=== PATIENT | male | born 1955 | race American Indian/Alaskan Native ===

== ENCOUNTER 2018-01-05 20:49 | Emergency (ER) | payer SELFPAY ==
[2018-01-05 22:59] VITALS: BP 168/103
[2018-01-06 00:05] LABS: Hematocrit 38.1 % (35.5-45.6); Hemoglobin 12.6 gm/dl (11.8-15.2); Mean Corpuscular HGB Conc 33 % (32-34); Mean Corpuscular Hemoglobin 31 pg (28-32); Mean Corpuscular Volume 93 fl (84-94); Platelet Count 260 K/mm3 (140-440); Red Cell Distribution Width 14.7 % (13.2-15.2)
--- NOTE | 2018-01-06 00:11 | Ultrasound Report ---
FINAL REPORT EXAM: US TESTICULAR DOPPLER COMP HISTORY: testicular pain TECHNIQUE: Routine sonographic evaluation was obtained of the scrotum with Doppler interrogation of both testicles. FINDINGS: The right testicle is normal size contour and echotexture measuring 2.8 cm x 2.6 cm x 3.2 cm. The right epididymis appears normal. There is a very small right-sided hydrocele. The left testicle is enlarged revealing slightly diminished echotexture, measuring 4.5 cm x 3.8 cm x 4.3 cm. There is slightly increased blood flow to the left testicle. There is a small septated left-sided hydrocele. The left epididymis is remarkable for a 3 mm epididymal cyst IMPRESSION: Slightly swollen left testicle with increased blood flow suggesting left-sided orchitis. Small left-sided septated hydrocele also. 3 mm in diameter left epididymal cyst. Normal-appearing right testicle and epididymis. Very small right-sided hydrocele.
[2018-01-06 00:21] LABS: BUN/Creatinine Ratio 8; Blood Urea Nitrogen 9 mg/dL (9-20); Calcium 9.3 mg/dL (8.4-10.2); Hemolysis Index 5
[2018-01-06 02:11] LABS: Bilirubin,Urine NEG (Negative); Blood,Urine NEG (Negative); Color,Urine Yellow (Yellow); Nitrite,Urine NEG (Negative); Protein,Urine <15 mg/dL mg/dL (Negative)
[2018-01-06] MEDS ORDERED: PERCOCET 5/325 PO ONE (06:31)
--- NOTE | 2018-01-06 06:36 | Emergency Department Report ---
ED Male HPI - General Chief complaint: Urogenital-Male Stated complaint: TESTICLE PAIN Time Seen by Provider: 01/06/18 05:59 Source: patient, family (sister bedside) Mode of arrival: Ambulatory Limitations: No Limitations - History of Present Illness Initial comments: Mr. Yañez is a 62 yo male with hx of hypertension and diabetes who presents with scrotal swelling and pain. Gradual onset 6 days ago. Last sexual intercourse 3 months ago was unprotected. He has a history of gonorrhea. He has left testicular pain and swelling. Testicle is very tender to touch. No penile discharge. No dysuria. When giving urine sample he did see sediment in the urine cup. He denies abdominal pain. Denies back pain. Denies fever. One week ago last Saturday, patient had syncopal episode after using the bathroom. He said after relieving himself, he woke up on the floor. He did not have any preceding symptoms of chest pain, palpitations or shortness of breath. MD Complaint: testicle pain, testicle swelling -: Gradual, days(s) (6) Location: left testicle Radiation: none Severity: severe Severity scale (0 -10): 7 Quality: aching Consistency: constant Improves with: none Worsens with: palpation swelling. denies: discharge, urinary retention, blood in urine, dysuria, fever , nausea/vomiting, incontinence - Related Data Home Medications Medication Instructions Recorded Confirmed Last Taken Lisinopril 5 mg PO DAILY 08/06/15 08/06/15 08/05/15 metFORMIN 500 mg PO BID 08/06/15 08/06/15 08/05/15 Previous Rx's Medication Instructions Recorded Last Taken Type Sulfamethoxazole/Trimethoprim 1 each PO BID 14 Days #28 tablet 01/06/18 Unknown Rx [Bactrim DS TAB] oxyCODONE /ACETAMINOPHEN [Percocet 1 tab PO Q6HR PRN #20 tablet 01/06/18 Unknown Rx 5/325 mg] Allergies Allergy/AdvReac Type Severity Reaction Status Date / Time No Known Allergies Allergy Verified 08/06/15 01:34 ED Review of Systems ROS: Stated complaint: TESTICLE PAIN Other details as noted in HPI Comment: All other systems reviewed and negative Constitutional: denies: chills, fever, malaise Respiratory: denies: cough Cardiovascular: denies: chest pain, palpitations Gastrointestinal: denies: abdominal pain, nausea, vomiting Genitourinary: testicular pain, testicular mass. denies: urgency, dysuria, frequency, hematuria, discharge ED Past Medical Hx - Past Medical History Hx Hypertension: Yes Hx Diabetes: Yes - Social History Smoking Status: Current Every Day Smoker Substance Use Type: Alcohol - Medications Home Medications: Home Medications Medication Instructions Recorded Confirmed Last Taken Type Lisinopril 5 mg PO DAILY 08/06/15 08/06/15 08/05/15 History metFORMIN 500 mg PO BID 08/06/15 08/06/15 08/05/15 History Sulfamethoxazole/Trimethoprim 1 each PO BID 14 Days #28 tablet 01/06/18 Unknown Rx [Bactrim DS TAB] oxyCODONE /ACETAMINOPHEN [Percocet 1 tab PO Q6HR PRN #20 tablet 01/06/18 Unknown Rx 5/325 mg] ED Physical Exam - General Limitations: No Limitations General appearance: alert, in no apparent distress - Head Head exam: Present: atraumatic, normocephalic - Eye Eye exam: Present: normal appearance. Absent: scleral icterus, conjunctival injection - ENT ENT exam: Present: normal orophraynx, mucous membranes moist - Neck Neck exam: Present: normal inspection. Absent: meningismus - Respiratory Respiratory exam: Present: normal lung sounds bilaterally. Absent: respiratory distress, wheezes, rales, rhonchi - Cardiovascular Cardiovascular Exam: Present: regular rate, normal rhythm, normal heart sounds. Absent: systolic murmur, diastolic murmur, rubs, gallop - GI/Abdominal GI/Abdominal exam: Present: soft, normal bowel sounds. Absent: distended, tenderness, guarding, rebound - Rectal Rectal exam: Present: deferred - exam: Present: testicular tenderness, scrotal swelling, vertical testicular lie, other (left testicle edematous and tender, right testicle normal size no tenderness). Absent: urethral discharge, circumcision - Extremities Exam Extremities exam: Present: normal inspection - Back Exam Back exam: Present: normal inspection. Absent: CVA tenderness (R), CVA tenderness (L) - Neurological Exam Neurological exam: Present: alert, oriented X3 - Psychiatric Psychiatric exam: Present: normal affect, normal mood - Skin Skin exam: Present: warm, dry, intact, normal color. Absent: rash ED Course Vital Signs 01/05/18 01/06/18 22:54 06:18 Temperature 98.4 F Pulse Rate 108 H Respiratory 20 18 Rate Blood Pressure 168/103 O2 Sat by Pulse 99 98 Oximetry ED Medical Decision Making - Lab Data Result diagrams: 01/05/18 23:38 01/05/18 23:38 Laboratory Results - last 24 hr 01/05/18 01/05/18 01/06/18 23:38 23:38 00:58 WBC 15.5 H RBC 4.10 Hgb 12.6 Hct 38.1 MCV 93 MCH 31 MCHC 33 RDW 14.7 Plt Count 260 Sodium 138 Potassium 3.4 L Chloride 99.3 Carbon Dioxide 27 Anion Gap 15 BUN 9 Creatinine 1.1 Estimated GFR > 60 BUN/Creatinine Ratio 8 Glucose 364 H Calcium 9.3 Urine Color Yellow Urine Turbidity Clear Urine pH 5.0 Ur Specific [place] 1.035 H Urine Protein <15 mg/dl Urine Glucose (UA) >=500 Urine Ketones Neg Urine Blood Neg Urine Nitrite Neg Ur Reducing Substances Not Reportable Urine Bilirubin Neg Urine Ictotest Not Reportable Urine Urobilinogen 4.0 Ur Leukocyte Esterase Lg Urine WBC (Auto) 115.0 H Urine RBC (Auto) 5.0 U Epithel Cells (Auto) 1.0 Vital Signs - 24 hr 01/05/18 01/06/18 22:54 06:18 Temperature 98.4 F Pulse Rate 108 H Respiratory 20 18 Rate Blood Pressure 168/103 O2 Sat by Pulse 99 98 Oximetry - Radiology Data Radiology results: report reviewed left sided orchitis with increased blood flow - Medical Decision Making 1. left sided orchitis with pyuria, will treat for E.coli considering age, GC culture sent rx: bactrim, Percocet, ice pack 2. unwitnessed syncope one week ago, vasovagal syncope after micturition no indication of ACS or PE or arrhythmia Critical care attestation.: If time is entered above; I have spent that time in minutes in the direct care of this critically ill patient, excluding procedure time. ED Disposition Clinical Impression: Orchitis of left testicle Disposition: DC-01 TO HOME OR SELFCARE Is pt being admited?: No Does the pt Need Aspirin: No Condition: Stable Instructions: Epididymo-orchitis (ED) Prescriptions: oxyCODONE /ACETAMINOPHEN [Percocet 5/325 mg] 1 tab PO Q6HR PRN #20 tablet PRN Reason: Pain Sulfamethoxazole/Trimethoprim [Bactrim DS TAB] 1 each PO BID 14 Days #28 tablet Referrals: ALEJO COHN MD [Primary Care Provider] - 3-5 Days Forms: STI Treatment and Prevention Time of Disposition: 06:49
[2018-01-06] MEDS ORDERED: BACTRIM DS PO ONE (06:42)
== END 2018-01-06 08:08 | disposition home or self-care (01) ==
LOC: ED 20:49
DX: N45.2 Orchitis (principal); E11.9 Type 2 diabetes mellitus without complications; F17.200 Nicotine dependence, unspecified, uncomplicated
CPT/HCPCS: 36415; 80048; 81001; 85027; 87076; 87086; 87186; 87591; 93975; 99284